=== PATIENT | female | born 1965 | race Caucasian/White ===

== ENCOUNTER 2019-05-16 07:33 | Emergency (ER) | payer BC, OTHER ==
--- OUTSIDE RECORDS SUMMARY | 2019-05-16 07:44 | XMS REPORT | Continuity of Care Document ---
:1965 External Reference #:[id number] Author Name Tyra Cardenas MD Address [address] [place] [address] Care Team Providers Name Role Phone Eduardo Rivas DR - Otolaryngology Care Team Information Insurance Inspector Problems Active Problems Provider Date Bundle branch block Tyra Cardenas MD Onset: 02/04/2014 Arteritis Tyra Cardenas MD Onset: 07/31/2013 Mixed hyperlipidemia Tyra Cardenas MD Onset: 10/10/2012 Herpes simplex without complication Tyra Cardenas MD Onset: 01/21/2012 Polyp of corpus uteri Tyra Cardenas MD Onset: 01/21/2012 C-reactive protein abnormal Tyra Cardenas MD Onset: 01/19/2011 Vitamin D deficiency Tyra Cardenas MD Onset: 01/19/2011 Closed fracture of metatarsal bone Tyra Cardenas MD Onset: 01/19/2011 Family history of polyp of colon Tyra Cardenas MD Onset: 01/06/2010 FH: Congenital anomaly Tyra Cardenas MD Onset: 01/06/2010 Family history of ischemic heart disease Tyra Cardenas MD Onset: 2005 Family history of stroke Tyra Cardenas MD Onset: 08/06/2005 Obstructive sleep apnea syndrome Tyra Cardenas MD Onset: 04/12/2018 Ex-smoker Tyra Cardenas MD Onset: 10/13/2017 Social History Type Date Description Comments Sex Unknown Tobacco Use Start: Unknown Former Cigarette Smoker 1ppd from age 20 - End: 27, then 3cig per day age 27 to 40, smoking form 02/2016 to 10/2016 at 3 per day Smoking Status Reviewed: 09/08/18 Former Cigarette Smoker 1ppd from age 20 - 27, then 3cig per day age 27 to 40, smoking form 02/2016 to 10/2016 at 3 per day ETOH Use Occasionally consumes alcohol Tobacco Use Start: Unknown Patient is a former End: Unknown smoker Recreational Drug Use Denies Drug Use Exercise Type/Frequency Exercises regularly Exercises regularly, downhill ski cash, walking in [place]. 07/31/2013 counselled 150min per week , 10,000 steps per day Allergies, Adverse Reactions, Alerts Active Allergies Reaction Severity Comments Date Sulfa 07/15/2014 Medications Active Medications SIG Qnty Indications Ordering Provider Date Bupropion 1 by mouth every 90tabs F17.211 Tyra Cardenas, 04/04/2019 Hydrochloride ER (XL) day in the MD morning 150mg Tablets ER 24HR F41.9 Estradiol apply 0.1 42.500gm N95.2 Tyra Cardenas, 09/08/2018 0.1mg/GM Cream gram(finger tip MD amount) to the vaginal area two to three times per week, 3 weeks on, 1 week off Valacyclovir HCL 1 by mouth twice a 6tabs B00.9 Tyra Cardenas, 2014 500mg day x 3 days as MD Tablets needed to treat outbreaks [facility] Vitamin D3 1 po qd Tyra Cardenas, 01/06/2010 1000Unit MD Capsules Ibuprofen 1 PO Q6 prn With 60tabs Tyra Cardenas, 10/27/2005 200mg Tablets Food Diphenhydramine HCL 1-2 PO QHS prn 20tabs Tyra Cardenas, 25mg MD Capsules Vitamin B Complex-C take one a day Unknown Capsules Aspirin Low Strength 1 by mouth every E78.2 Tyra Cardenas, 81mg day Chewtabs Z82.49 Fish Oil 435mg Capsules once a day Unknown Immunizations CPT Code Status Date Vaccine Reaction Lot # [id number] Given 03/16/2019 Fluzone Highdose Age 65 And given at work, deny Over Preservative & per pt Antibiotic Free Q2039 Given 03/16/2018 Flu Vaccine NOS got at [facility] Q2039 Given 03/16/2017 Flu Vaccine NOS PER PT HAD A T WORK/[place] 66330 Given 02/23/2016 Influenza Virus Vaccine,Quadrivalent,Split,P reserv Free, 0.5mL,[place] [address] Given 02/23/2013 Tdap (Adacel) Ages 7 And Above Only 24035 Given 05/24/2003 Immunization Td 7 Yrs Or Older 63069 Refused 04/04/2019 Shingrix (Shingles) Zoster aware can get at pharmacy Vaccine HZV, Recombinant, Subunit, Adj 86682 Refused 09/08/2018 Shingrix (Shingles) Zoster Vaccine HZV, Recombinant, Subunit, Adj [id number] Refused 04/12/2018 Shingrix (Shingles) Zoster will think about getting at Vaccine HZV, Recombinant, pharmacy Subunit, Adj 17942 Refused 08/13/2014 Influenza Virus Vaccine,Quadrivalent,Split,Pres erv Free, 0.5mL,Im Vital Signs Date Vital Result Comment 04/04/2019 3:40pm Weight 238.00 lb Heart Rate 86 /min BP Systolic 130 mmHg BP Diastolic 73 mmHg Respiratory Rate 16 /min Height 65 inches 5'5" BMI (Body Mass Index) 39.6 kg/m2 09/08/2018 2:09pm Weight 234.00 lb Heart Rate 88 /min BP Systolic 130 mmHg BP Diastolic 84 mmHg Respiratory Rate 18 /min Height 65 inches 5'5" BMI (Body Mass Index) 38.9 kg/m2 Results Description No Information Available Procedures Date Code Description Status 04/04/2019 92468 Brief Emotional/Behav Assessment W/ Scoring Doc Per Completed Standard Inst 09/06/2018 [id number] Mammogram Completed 09/21/2017 [id number] Mammogram Completed 08/28/2015 [id number] Colonoscopy Completed 05/21/2015 [id number] Mammogram Completed 02/17/2011 [id number] Bone Mineral Density Test Completed Medical Devices Description No Information Available Encounters Description No Information Available Assessments Date Code Description Provider 04/04/2019 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 Tyra Cardenas MD 04/04/2019 N95.2 Postmenopausal atrophic vaginitis Tyra Cardenas MD 04/04/2019 F41.9 Anxiety disorder, unspecified Tyra Cardenas MD 04/04/2019 E66.9 Obesity, unspecified Tyra Cardenas MD 04/04/2019 G47.33 Obstructive sleep apnea (adult) (pediatric) Tyra Cardenas MD 04/04/2019 N95.1 Menopausal and female climacteric states Tyra Cardenas MD 04/04/2019 R53.83 Other fatigue Tyra Cardenas MD 04/04/2019 R41.82 Altered mental status, unspecified Tyra Cardenas MD 04/04/2019 Z68.39 Body mass index (BMI) 39.0-39.9, adult Tyra Cardenas MD Plan of Treatment Future Appointment(s):09/12/2019 3:30 pm - Tyra Cardenas MD at [facility]2018 3:10 pm - Schedule, Laboratory at [facility]04/04/2019 - Tyra Cardenas MD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Comments:no issues found with ENTFollow up: labs anytime now; next visit after 09/08 for 30min annual exam and mammo after 09/07N95.2 Postmenopausal atrophic vaginitisComments:Discussed atrophic vaginitis. Recommend use of Ky jelly. Also recommend increaseing fluids 15-60 hour prior to intercourse. Encouraged pt lots of warmup/stimulation before penetration to encourage vaginal secretions. She is using vaginal estrogen cream , very very low dose as a fingertip to the vaginal area twice a week for 3 weeks then none for one week. Advised risks for estrogen based breast and uterine cancers as well as risks for blood clots including stroke, heart attack , clots in legs, etc. Risk should be very low for these.F41.9 Anxiety disorder , unspecifiedNew Medication:Bupropion Hydrochloride ER (XL) 150 mg - 1 by mouth every day in the morningComments:anxiety, wesley = 5 some depresion features phq9 = 2she is doing much better nowhas swimming, yoga, skiing and counseling to help with mood concernsshe finds the bupropion very helpful , asks to take the bupropion ER XL formula at 150mg daily instead of SR forumula. feels much better. Continue meds continues lsfzuczwvudF40.9 Obesity, unspecifiedComments: continue to work on diet, exercise, weight loss pt asks for tsh, free t4 and free t3 with next labs, she had a normal tsh in 2015. will have her sign waiver as insurance may not cover. she asks for the additional testing to "have accurate results" advised the standard of care is to do a tsh only for screening.G47.33 Obstructive sleep apnea (adult) (pediatric)Comments:sleep apneacpap and mouth guard did not work for her Pt is aware of the medical risks for sleep apnea causing low oxygen levels and leading to heart arrhythmias, low oxygen to the brain and other organs, and potentially being a cause for heart attack, stroke and other medical conditions.N95.1 Menopausal and female climacteric ydstedZ06.83 Other fatigueNew Labs:TSH, Scheduled: Comprehensive Met Panel-[facility], Scheduled: 04/09/19Free T4, Scheduled: Triiodothyronin,Free-[facility], Scheduled: 04/09/19Vitamin B12, Scheduled: CBC with Auto Diff-fcmg, Scheduled: 04/09/19Vit D 25Oh, Scheduled: R41.82 Altered mental status, unspecifiedComments:Forgetfulness brain fog check labs Discussed, with fatigue, distraction, may have problems with memory. Careful attention to hydration, diet and regular calorie intake, sleep, can be very helpful. Seek care if seems progressive and with attention to lifestyle the symptoms are not improving.Z68.39 Body mass index (BMI) 39.0-39.9, adultComments:Encouraged healthy calorie reduced diet and regular exercise. Functional Status Description No Information Available Mental Status Description No Information Available Referrals Description No Information Available
--- OUTSIDE RECORDS SUMMARY | 2019-05-16 07:44 | XMS REPORT | Continuity of Care Document ---
:1965 External Reference #:[id number] Author Name Tyra Cardenas MD Address [address] [place] [address] Care Team Providers Name Role Phone Eduardo Rivas DR - Otolaryngology Care Team Information Case Planner Problems Active Problems Provider Date Bundle branch [...] Code Status Date Vaccine Reaction Lot # [id number] Given 03/16/2019 Fluzone Highdose Age 65 And given at work, deny Over Preservative & per pt Antibiotic Free Q2039 Given 03/16/2018 Flu Vaccine NOS got at [facility] Q2039 Given 03/16/2017 Flu Vaccine NOS PER PT HAD A T WORK/[place] [address] Given 02/23/2016 Influenza Virus Vaccine,Quadrivalent,Split,P reserv Free, 0.5mL,[place] [address] Given 02/23/2013 Tdap (Adacel) Ages 7 And Above Only 95440 Given 05/24/2003 Immunization Td 7 Yrs Or Older 53026 Refused 04/04/2019 Shingrix (Shingles) Zoster aware can get at pharmacy Vaccine HZV, Recombinant, Subunit, Adj 10895 Refused 09/08/2018 Shingrix (Shingles) Zoster Vaccine HZV, Recombinant, Subunit, Adj 47821 Refused 04/12/2018 Shingrix (Shingles) Zoster will think about getting at Vaccine HZV, Recombinant, pharmacy Subunit, Adj 08492 Refused 08/13/2014 Influenza Virus Vaccine,Quadrivalent,Split,Pres erv Free, 0.5mL,Im Vital Signs Date Vital Result Comment 05/02/2019 3:07pm Weight 242.00 lb Heart Rate 80 /min BP Systolic 126 mmHg LEFT arm BP Diastolic 84 mmHg LEFT arm BP Systolic Recheck 128 mmHg RIGHT arm BP Diastolic Recheck 86 mmHg RIGHT arm Respiratory Rate 18 /min Height 65 inches 5'5" BMI (Body Mass Index) 40.3 kg/m2 04/04/2019 3:40pm Weight 238.00 lb Heart Rate 86 /min BP Systolic 130 mmHg BP Diastolic 73 mmHg Respiratory Rate 16 /min Height 65 inches 5'5" BMI (Body Mass Index) 39.6 kg/m2 Results Test Acquired Date Facility Test Result H/L Range Note Hepatic Panel (LFT) 04/16/2019 [facility] Total Protein 6.8 g/dL 6.0-8.0 1 Albumin 4.5 g/dL 3.6-4.9 Total Bilirubin 0.6 mg/dL 0.1-1.3 Direct Bilirubin 0.1 mg/dL 0.0-0.4 Alkaline Phosphatase 82 U/L 24-140 Alt 219 U/L High 3-42 Ast 71 U/L High 8-42 Hepatitis Prof Acute-RL 04/16/2019 [facility] Hepatitis B S Ag @ NEGATIVE ( Neg) Hep. B Core Igm @ NEGATIVE (Neg) Hepatitis A AB Igm @ NEGATIVE (Neg) Hepatitis C AB @ NEGATIVE (Neg) 2 Laboratory test finding 04/09/2019 [facility] TSH 1.61 uIU/mL 0.35-4.94 3 Comprehensive Met Panel-[facility] 04/09/2019 [place] Sodium 138 mmol/L 135- 146 4 Potassium 4.0 mmol/L 3.5-5.2 Chloride# 105 mmol/L 97-110 5 Carbon Dioxide 25 mmol/L 24-34 Calcium 8.8 mg/dL 8.5-10.5 6 Glucose 86 mg/dL 70-105 BUN 20 mg/dL 6-26 Creatinine 0.7 mg/dL 0.5-1.4 Total Protein 6.4 g/dL 6.0-8.0 Albumin 4.3 g/dL 3.6-4.9 Globulin 2.1 g/dL 2.0-3.5 A/G Ratio 2.0 Ratio 1.0-2.2 Total Bilirubin 0.3 mg/dL 0.1-1.3 Alkaline Phosphatase 75 U/L 24-140 Alt 236 U/L High 3-42 Ast 75 U/L High 8-42 Anion Gap 8 mmol/L 5-15 7 Female Egfr 94 >60 8 Male Egfr 105 >60 9 Laboratory test finding 04/09/2019 [facility] Free T4 0.85 ng/dL 0.70-1.48 T3,Free 2.57 pg/mL 1.71-3.71 Vitamin B12 388 pg/mL 180-914 CBC with Auto Diff-fcmg 04/09/2019 [facility] WBC 6.3 K/uL 4.1-11.0 10 RBC 4.68 M/uL 4.00-5.40 11 Hemoglobin 12.8 gm/dL 12.0-16.0 12 Hematocrit 38.7 % 36.0-47.0 13 MCV 82.8 fL 80.0-95.0 14 MCH 27.5 pg 27.0-32.0 15 MCHC 33.2 g/dL 32.0-36.0 16 RDW 14.0 % 10.5-14.5 17 PLT Count 245 K/ul 150-400 18 MPV 7.3 FL 7.1-10.7 Neutrophil 54.7 % 35.0-75.0 19 Lymphocyte 32.5 % 16.0-52.0 20 Monocyte 8.5 % High 0.0-8.0 21 Eosinophil 3.8 % 0.0-5.0 Basophil 0.5 % 0.0-4.0 Abs Neutrophils 3.5 K/uL 1.8-7.7 22 Abs Lymphocytes 2.1 K/uL 1.2-4.8 23 Abs Monocytes 0.5 K/uL 0.0-0.8 24 Abs Eosinophils 0.2 K/uL 0.0-0.5 25 Abs Basophils 0.0 K/uL 0.0-0.2 26 Laboratory test finding 04/09/2019 [facility] Vitamin D 25 Hydroxy 32 ng/mL 30-100 27 Gamma gt 45 U/L (15-95) 28 1 see tri 04/11 , ov fu 2 NOT INFECTED WITH HCV, UNLESS RECENT INFECTION IS SUSPECTED OR OTHER EVIDENCE EXISTS TO INDICATE HCV INFECTION. Unless otherwise specified, testing performed by [facility] [address] [place] [address] 3 now letter ; sign waiver for t3 and t4 please 4 Updated reference range on new analyzer 5 Updated reference range on new analyzer 6 Updated reference range 09-13-2018 7 Updated Reference Range 8 Concerning GFR Guidelines for Americans: Normal function or mild renal disease, if clinically at risk: >/= 60 mL/min Moderately decreased: 30-59 Severely decreased: 15-29 Renal failure: <15 There is reduced accuracy above 60ml/min/1.73 m squared, but the numeric value may be clinically useful in the near 60 range 9 Concerning GFR Guidelines: Normal function or mild renal disease, if clinically at risk: >/= 60 mL/min Moderately decreased: 30-59 Severely decreased: 15-29 Renal failure: <15 There is reduced accuracy above 60ml/min/1.73 m squared, but the numeric value may be clinically useful in the near 60 range Glomerular Filtration Rate (GFR) is estimated based on the CKD-EPI equation, which assumes a steady state for creatinine as recommended by the National Kidney Disease Education Program in conjunction with the National Institutes of Health and the National Kidney Foundation. Clinical conditions in which it may be necessary to measure GFR by using clearance methods include extremes of age and body size, severe malnutrition or obesity, diseases of skeletal muscle, paraplegia or quadriplegia, vegetarian diet, rapidly changing kidney function, and calculation of the dose of potentially toxic drugs that are excreted by the kidneys. 10 Updated Reference Range 03/2019 11 Updated Reference Range 03/2019 12 Updated Reference Range 03/2019 13 Updated Reference Range 03/2019 14 Updated Reference Range 03/2019 15 Updated Reference Range 03/2019 16 Updated Reference range 03/2019 17 Updated Reference range 03/2019 18 Updated Reference Range 03/2019 19 Updated Reference Range 03/2019 20 Updated Reference Range 03/2019 21 Updated Reference Range 03/2019 22 Updated Reference Range 03/2019 23 Updated Reference Range 03/2019 24 Updated Reference Range 03/2019 25 Updated Reference Range 03/2019 26 Updated Reference Range 03/2019 27 Clinical Guidelines for recommended serum 25(OH)Vitamin D Deficient at less than 20 ng/mL Insufficient at 20 to <30 ng/mL Sufficient at 30-100 ng/mL Toxicity at greater than 100 ng/mL 28 Unless otherwise specified, testing performed by [facility] [address] [place] [address] Procedures Date Code Description Status 04/04/2019 49458 Brief Emotional/Behav Assessment W/ Scoring Doc Per Completed Standard Inst 09/06/2018 [id number] Mammogram Completed 09/21/2017 [id number] Mammogram Completed 08/28/2015 [id number] Colonoscopy Completed 05/21/2015 [id number] Mammogram Completed 02/17/2011 [id number] Bone Mineral Density Test Completed Medical Devices Description No Information Available Encounters Type Date Location Provider Dx Diagnosis Office Visit 04/04/2019 [facility] Tyra Cardenas, K11.1 Hypertrophy of 3:15p MD salivary gland N95.2 Postmenopausal atrophic vaginitis F41.9 Anxiety disorder, unspecified E66.9 Obesity, unspecified G47.33 Obstructive sleep apnea (adult) (pediatric) N95.1 Menopausal and female climacteric states R53.83 Other fatigue R41.82 Altered mental status, unspecified Z68.39 Body mass index (BMI) 39.0-39.9, adult Assessments Date Code Description Provider 05/02/2019 R94.5 Abnormal results of liver function studies Tyra Cardenas MD 05/02/2019 K75.81 Nonalcoholic steatohepatitis (Jacob) Tyra Cardenas MD 05/02/2019 D37.6 Neoplasm of uncertain behavior of liver, 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 05/02/2019 N28.1 Cyst of kidney, acquired Tyra Cardenas MD 05/02/2019 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 Tyra Cardenas MD 05/02/2019 E66.01 Morbid (severe) obesity due to excess calories Tyra Cardenas MD 05/02/2019 R51 Headache Tyra Cardenas MD 05/02/2019 F41.9 Anxiety disorder, unspecified Tyra Cardenas MD 05/02/2019 Z68.41 Body mass index (BMI) 40.0-44.9, adult Tyra Cardenas MD 04/16/2019 R94.5 Abnormal results of liver function studies Tyra Cardenas MD 04/16/2019 R94.5 Abnormal results of liver function studies Schedule, Laboratory 04/16/2019 R94.5 Abnormal results of liver function studies [facility] 04/09/2019 R53.83 Other fatigue Tyra Cardenas MD 04/09/2019 R53.83 Other fatigue Schedule, Laboratory 04/09/2019 E78.2 Mixed hyperlipidemia Tyra Cardenas MD 04/09/2019 E78.2 Mixed hyperlipidemia Schedule, Laboratory 04/09/2019 E55.9 Vitamin D deficiency, unspecified Tyra Cardenas MD 04/09/2019 E55.9 Vitamin D deficiency, unspecified Schedule, Laboratory 04/09/2019 R53.83 Other fatigue [facility] 04/09/2019 E78.2 [facility] 04/09/2019 E55.9 Vitamin D deficiency, unspecified [facility] 04/04/2019 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 Tyra Cardenas MD 04/04/2019 N95.2 Postmenopausal atrophic vaginitis Tyar Cardenas MD 04/04/2019 F41.9 Anxiety disorder, unspecified [...] Tyra Cardenas MD Plan of Treatment Future Appointment(s):07/25/2019 3:00 pm - Schedule, Laboratory at [facility]2019 4:00 pm - Tyra Cardenas MD at [facility]05/03/2019 3:30 pm - Schedule, Laboratory at [facility]09/12/2019 3:30 pm - Tyra Cardenas MD at [facility]05/02/2019 - Tyra Cardenas, MDR94.5 Abnormal results of liver function studiesComments: discussed fatty liver diseaseat risk for diabetesenc low fat diet, weight loss, exerciseFollow up:labs schedule to do now esr and crp; mri of abd with contrast as noted. next visit in 90 days for oc15 rtn fu abnormal liver tests, nonfasting labs 5 days prior cmpK75.81 Nonalcoholic steatohepatitis (Jacob)New Labs:Comprehensive Met Panel-[facility], Scheduled: 07/25/19Comments:fatty liver per ultrasounddiscussed that the extra fat depositing in the liver can lead to a "metabolic inflammation" and abnormal liver enzyme elevations. there is an association of cirrhosis with this. I strongly recommend weight loss, healthy eating, low fat/low cholesterol diet, limiting alcoholto under 1-2 per week and exercise to help treat this. recommend limiting tylenol. she plans to taper bupropion as wellD37.6 Neoplasm of uncertain behavior of liver, gallbladder and bile ductsNew Xrays:MRI, Abdomen, W/ & W/O Contrast, Ordered: Comments:3cm area of fatty liver sparing on the ultrasound. check MRI with contrast ( vs ct with contrast) asrecommended by radiologist to evaluate for neoplasm/cancer vs hemangioma.N28.1 Cyst of kidney, acquiredNew Xrays:MRI, Abdomen, W/ & W/O Contrast, Ordered: 05/02/19Comments:several cysts listed on US, involve both kidneys, small 1.1 cm, 2 cm. will order MRI to help iqigsamlH41.4 Cyst of spleenNew Xrays:MRI, Abdomen, W/ & W/O Contrast, Ordered: 05/02/19Comments:spleen cyst check MRIE66.01 Morbid (severe) obesity due to excess caloriesComments:Morbid obesity BMI over 35 with medically related illnesses this increases your risk for sleep apnea, arthritis, premature cardiovascular disease, etcshe has fatty liversuggest myfitnesspal jordyn to track calories, exercisesuggest target 1/2 to 1 pound down per weekunder 1200 anita per day is likely what will be needed. limit grains, focus on veg, some fruits, lean meat, nonfat dairy and walking/wluceexumxchcH11 HeadacheNew Labs:Esr-[facility], Scheduled: 05/03/19CRP (C-Reactive), Scheduled: 05/03/19Comments: pt reports some slight increase in headaches, she reports ho vasculitis, will check esr and crpseek care if progressiveshe plans ophtho apptReferral:No Doctor TrluwvlgY79.9 Anxiety disorder, unspecifiedComments:she plans to taper off the bupropion due to elevated liver testsseek care /call for gapjpokmT46.41 Body mass index (BMI) 40.0-44.9, adultComments:continue to work on diet, exercise, weight loss Functional Status Description No Information Available Mental Status Description No Information Available Referrals Refer to Reason for Referral Status Appt Date 53 yo new increased lfts, has some increasedd Created headaches and ho vasculitis ophtho exam, retina exam recommended
[2019-05-16 08:22] LABS: Influenza A Molecular POSITIVE (Negative)
[2019-05-16 08:31] VITALS: BP 115/81
--- NOTE | 2019-05-16 08:31 | UC ---
FLU HPI - HPI Summary HPI Summary: 53 year old woman here with a chief complaint of influenza-like symptoms for 2- 3 days. She got fever chills body aches cough. She is a sore throat it's worse with coughing. Minimal rhinorrhea. Has been using ebgs-ers-psnrzii medicines which to help some symptoms. Her son has similar symptoms and he's positive for influenza. - History of Current Complaint Stated Complaint: flu symp Time Seen by Provider: 05/16/19 07:42 Hx Last Menstrual Period: last week - Allergy/Home Medications Allergies/Adverse Reactions: Allergies Allergy/AdvReac Type Severity Reaction Status Date / Time Sulfa (Sulfonamide Allergy Severe Anaphylatic Verified 05/16/19 07:48 Antibiotics) Shock acetaminophen AdvReac Unknown avoids due Verified 05/16/19 07:50 to elavated liver enzymes Home Medications: Home Medications Aspirin 81 mg CHEW TAB* [Aspirin Low Dose TAB*] 81 mg PO DAILY 05/16/19 [ History Confirmed 05/16/19] guaiFENesin ER TAB [Mucinex*] 600 mg PO BID PRN 05/16/19 [History Confirmed 06/04] PMH/Surg Hx/FS Hx/Imm Hx Previously Healthy: Yes - Surgical History Surgical History: None - Family History Known Family History: Positive: Non-Contributory - Social History Substance Use Type: None - Immunization History Most Recent Tetanus Shot: unsure Review of Systems All Other Systems Reviewed And Are Negative: Yes Constitutional: Positive: Fever, Chills, Other - SEE HPI Skin: Positive: Negative Eyes: Positive: Negative ENT: Positive: Sore Throat, Nasal Discharge, Sinus Congestion Respiratory: Positive: Cough, Other - SEE HPI Cardiovascular: Positive: Negative Gastrointestinal: Positive: Negative Motor: Positive: Negative Neurovascular: Positive: Negative Musculoskeletal: Positive: Myalgia Neurological: Positive: Negative Psychological: Positive: Negative Is Patient Immunocompromised?: No Physical Exam Triage Information Reviewed: Yes Appearance: No Pain Distress, Well-Nourished, Ill-Appearing - MILD Vital Signs Reviewed: Yes Eye Exam: Normal Eyes: Positive: Conjunctiva Clear ENT: Positive: Pharynx normal, Nasal congestion, TMs normal Neck: Positive: Supple Respiratory: Positive: Lungs clear, Normal breath sounds, No respiratory distress Cardiovascular: Positive: RRR Musculoskeletal: Positive: Strength Intact, ROM Intact Neurological: Positive: Alert, Muscle Tone Normal Psychological: Positive: Age Appropriate Behavior Skin Exam: Normal Flu Course/Dx - Differential Dx/Diagnosis Provider Diagnosis: Influenza Discharge ED - Sign-Out/Discharge Documenting (check all that apply): Patient Departure All imaging exams completed and their final reports reviewed: No Studies - Discharge Plan Condition: Stable Disposition: HOME Prescriptions: Oseltamivir Phosphate [Tamiflu] 75 mg PO BID #10 capsule Patient Education Materials: Influenza (ED) Forms: *Work Release Referrals: Tyra Cardenas MD [Primary Care Provider] - Additional Instructions: FOLLOW UP WITH YOUR DOCTOR IF NOT COMPLETELY IMPROVED. GET REEVALUATED SOONER IF NOT IMPROVING OR WORSE OR ANY QUESTIONS OR CONCERNS. - Billing Disposition and Condition Condition: STABLE Disposition: Home
== END 2019-05-16 08:36 | disposition home or self-care (01) ==
LOC: UCCORT 07:33
DX: J11.1 Influenza due to unidentified influenza virus with other respiratory manifestations (principal); Z88.2 Allergy status to sulfonamides; Z88.8 Allergy status to other drugs, medicaments and biological substances; Z79.82 Long term (current) use of aspirin
CPT/HCPCS: 87651; 99212; G0463